=== PATIENT | male | born 1990 | race Caucasian/White ===

== ENCOUNTER 2017-07-09 11:40 | Emergency (ER) | payer MEDICAID ==
--- NOTE | 2017-07-09 12:17 | EDM.PDOC ---
ED HPI GENERAL MEDICAL PROBLEM - General Chief Complaint: Bite:Animal, Insect Stated Complaint: LT ARM SWOLLEN/BIT BY SPIDER? Time Seen by Provider: 07/09/17 12:05 Source of Information: Reports: Patient, Family History Limitations: Reports: No Limitations - History of Present Illness INITIAL COMMENTS - FREE TEXT/NARRATIVE: 27-year-old male woke up with a reddened bump on the inside of his left elbow yesterday morning, it is now expanded to surrounding redness, becoming more warm and tender. No fevers or chills. Onset: Gradual (Over the past day and a half) Location: Reports: Upper Extremity, Left Severity: Mild Associated Symptoms: Reports: No Other Symptoms Left Arm Pain Score (Numeric/FACES): 5 - Related Data Allergies Allergy/AdvReac Type Severity Reaction Status Date / Time Penicillins Allergy Hives Verified 07/09/17 11:53 Sulfa (Sulfonamide Allergy Hives Verified 07/09/17 11:53 Antibiotics) Home Meds: Home Meds buPROPion HCl [Wellbutrin Sr] 150 mg PO BID 07/09/17 [History] Past Medical History HEENT History: Reports: Impaired Vision Gastrointestinal History: Reports: GERD Neurological History: Reports: Concussion Psychiatric History: Reports: Anxiety, Depression, PTSD - Infectious Disease History Infectious Disease History: Reports: Chicken Pox - Past Surgical History HEENT Surgical History: Reports: Adenoidectomy, Tonsillectomy Social & Family History - Tobacco Use Smoking Status *Q: Current Every Day Smoker Years of Tobacco use: 9 Packs/Tins Daily: 0.5 Used Tobacco, but Quit: No Second Hand Smoke Exposure: Yes - Caffeine Use Caffeine Use: Reports: Coffee, Soda - Alcohol Use Days Per Week of Alcohol Use: 2 Number of Drinks Per Day: 3 Total Drinks Per Week: 6 - Recreational Drug Use Recreational Drug Use: No ED ROS GENERAL - Review of Systems Review Of Systems: See Below Constitutional: Denies: Fever, Chills Respiratory: Denies: Shortness of Breath GI/Abdominal: Denies: Nausea, Vomiting Neurological: Denies: Headache ED EXAM, ANIMAL BITE - Physical Exam Exam: See Below Exam Limited By: No Limitations General Appearance: Alert, No Apparent Distress Respiratory/Chest: No Respiratory Distress Extremities: Other (Left arm has a small reddened tender papule just medial to the elbow, with surrounding erythema, warmth and tenderness extending up the inner upper arm) Neurological: Alert, Oriented Course - Vital Signs Last Recorded V/S: Last Vital Signs Temp 96.8 F 07/09/17 12:01 Pulse 97 07/09/17 12:01 Resp 16 07/09/17 12:01 BP 136/85 07/09/17 12:01 Pulse Ox 97 07/09/17 12:01 - Re-Assessments/Exams Free Text/Narrative Re-Assessment/Exam: 07/09/17 12:15 This may just be a toxic reaction to some type of a bite, however just as likely is folliculitis with cellulitis. He is allergic to penicillin and sulfa, so will be placed on clindamycin 3 times a day for the next 5 days and can use topical hydrocortisone and oral Benadryl for symptoms. He should return in 48 hours if not improving satisfactorily. Departure - Departure Time of Disposition: 12:40 Disposition: Home, Self-Care 01 Condition: Good Clinical Impression: Cellulitis Qualifiers: Site of cellulitis: extremity Site of cellulitis of extremity: upper extremity Laterality: left Qualified Code(s): L03.114 - Cellulitis of left upper limb - Discharge Information Instructions: Cellulitis, Adult, [id number] Referrals: Adam Paul PA [Primary Care Provider] - Forms: ED Department Discharge Care Plan Goals: Take antibiotic as prescribed for the next 5 days. Benadryl, ibuprofen and topical steroid may help. Recheck in 48-72 hours if not improving satisfactorily , or return sooner if high fever, unable to take the medication or other concerns.
== END 2017-07-09 12:40 | disposition home or self-care (01) ==
LOC: JP.ED 11:40
DX: L03.114 Cellulitis of left upper limb (principal); F17.210 Nicotine dependence, cigarettes, uncomplicated; F32.9 Major depressive disorder, single episode, unspecified; Z88.0 Allergy status to penicillin; Z88.2 Allergy status to sulfonamides
CPT/HCPCS: 99283

== ENCOUNTER 2022-10-25 12:44 | Emergency (ER) | payer MEDICAID | END 2022-10-25 13:20 | disposition home or self-care (01) | LOC: JP.ED 12:44 | DX: T59.811A Toxic effect of smoke, accidental (unintentional), initial encounter (principal); R05.9 Cough, unspecified; F17.210 Nicotine dependence, cigarettes, uncomplicated; Z88.0 Allergy status to penicillin; Z88.2 Allergy status to sulfonamides; Y92.009 Unspecified place in unspecified non-institutional (private) residence as the place of occurrence of the external cause | CPT/HCPCS: 99282; 99284 ==